=== PATIENT | male | born 1965 | race Two or more races ===

== ENCOUNTER → 2019-03-27 | Outpatient (CLI) | payer OTHER | END | disposition home or self-care (01) | LOC: TOM 08:31 | DX: N20.0 Calculus of kidney (principal); K40.90 Unilateral inguinal hernia, without obstruction or gangrene, not specified as recurrent ==

== ENCOUNTER 2024-05-02 07:52 | Outpatient (CLI) | payer OTHER | END 2024-05-02 08:10 | disposition home or self-care (01) | LOC: TOM 07:52 | DX: N40.1 Benign prostatic hyperplasia with lower urinary tract symptoms (principal); N28.1 Cyst of kidney, acquired ==